=== PATIENT | male | born 1980 | race Caucasian/White ===

== ENCOUNTER 2019-09-02 16:39 | Inpatient (IN) | payer MEDICAID, OTHER ==
[~2019-09-02] VITALS: Ht 170.2 cm; Wt 69.3 kg
[2019-09-02] MEDS ORDERED: SODIUM CHLORIDE 0.9% 500 ML IVB ONE (17:03)
[2019-09-02 17:26] LABS: Basophils # (auto) 0.1 10 ^3/uL (0-0.2); Basophils % (auto) 0.8 % (0.0-2.0); Eosinophils # (auto) 0.2 10 ^3/uL (0-0.8); Eosinophils % (auto) 1.4 % (0.0-7.0); Hematocrit 51.6 % (41.0-53.0); Hemoglobin 17.6 g/dL (13.5-17.5); Lymphocytes # (auto) 2.4 10 ^3/uL (0.4-5.4); Mean Corpuscular Hemoglobin 33.7 pg (28.0-32.0); Mean Corpuscular Hgb Conc. 34.1 g/dL (32.0-36.0); Mean Corpuscular Volume 98.7 fL (80.0-100.0); Monocytes # (auto) 1.3 10 ^3/uL (0-1.3); Monocytes % (auto) 11.9 % (0.0-12.0); Neutrophils # (auto) 6.9 10 ^3/uL (1.6-8.6); Neutrophils % (auto) 63.9 % (37.0-80.0); Nucleated Red Blood Cells % 0.1 %; Platelet Count (auto) 198 10^3/uL (140-450); Red Blood Cells 5.22 10^6/uL (4.5-5.90); White Blood Cell 10.8 10^3/uL (4.4-10.8)
[2019-09-02] MEDS ORDERED: cloNIDine HCL 0.1 MG TAB PO ONE ×2 (17:30→18:00)
[2019-09-02 17:44] LABS: Alanine Aminotransferase 32 U/L (16-61); Albumin 4.2 g/dL (3.4-5.0); Anion Gap 6 (5-15); Aspartate Aminotransferase 35 U/L (15-37); Blood Urea Nitrogen 12 mg/dL (7-18); Calcium 9.4 mg/dL (8.5-10.1); Carbon Dioxide 26 mmol/L (21-32); Chloride 102 mmol/L (98-107); GFR African American 96 mL/min; GFR Non-African American 80 mL/min; Glucose 81 mg/dL (74-106); Magnesium 2.4 mg/dL (1.6-2.6); Potassium 4.4 mmol/L (3.5-5.1); Sodium 134 mmol/L (136-145)
[2019-09-02 17:49] LABS: Alkaline Phosphatase 63 U/L (45-117); Bilirubin, Total 0.5 mg/dL (0.2-1.0); Total Protein 8.2 g/dL (6.4-8.2)
[2019-09-02] MEDS ORDERED: DEXTROSE (50%) 50ML SYRG IV PRN (18:15)
[2019-09-02] MEDS ORDERED: MORPHINE SULF INJ 2 MG/ML SYRINGE 1ML IV PRN (18:15)
[2019-09-02] MEDS ORDERED: NITROGLYCERIN 0.4 MG SL TAB SL PRN (18:15)
--- NOTE | 2019-09-02 19:37 | NUR ---
Telemetry admit from [facility] admitted to Telemetry unit after SBAR received. Patient oriented to Charo Jenkins, primary RN, unit, room, bed, and unit policies regarding patient care and visiting hours. Patient now on continuous telemetry monitoring, tele box # [id number] and telemetry reading on arrival to unit is Sinus tach. Patient on room air, weighed by bedscale and encouraged to call if they need something. All questions and concerns addressed, patient verbalized understanding.
[2019-09-02 22:00] VITALS: BP 125/89
[2019-09-02] MEDS: InsuLIN REG 1unit/0.01ml Soln (100units/ml) SC SCH (22:00)
[2019-09-02] MEDS: ACCU-CHEK COMFORT CURVE STRIP VI SCH (22:05)
[2019-09-02] MEDS: HYDROcodone-ACET 5/325MG TAB PO PRN (22:42)
[2019-09-03] MEDS ORDERED: SODIUM CHLORIDE 0.9% 1,000 ML IV SCH (02:00)
--- NOTE | 2019-09-03 02:55 | NUR ---
IV insertion IV access obtained, via clean sterile technique by inserting 20 gauge catheter at right forearm after 1 attempt. IV secured properly. No trauma to site. Patient tolerated well. Addendum: 09/03/19 at 0256 by Charo Jenkins RN IV removal IV at left AC DC'd with clean sterile technique, catheter fully intact. Pressure dressing applied to site. Patient tolerated well.
[2019-09-03 05:28] LABS: Basophils # (auto) 0.1 10 ^3/uL (0-0.2); Hemoglobin 15.5 g/dL (13.5-17.5); Monocytes # (auto) 0.9 10 ^3/uL (0-1.3)
[2019-09-03 05:29] LABS: Basophils % (auto) 1.3 % (0.0-2.0); Eosinophils # (auto) 0.3 10 ^3/uL (0-0.8); Eosinophils % (auto) 4.8 % (0.0-7.0); Hematocrit 44.9 % (41.0-53.0); Lymphocytes # (auto) 2.4 10 ^3/uL (0.4-5.4); Lymphocytes % (auto) 33.2 % (10.0-50.0); Mean Corpuscular Hemoglobin 34.2 pg (28.0-32.0); Mean Corpuscular Hgb Conc. 34.4 g/dL (32.0-36.0); Mean Corpuscular Volume 99.3 fL (80.0-100.0); Neutrophils # (auto) 3.4 10 ^3/uL (1.6-8.6); Neutrophils % (auto) 47.7 % (37.0-80.0); Nucleated Red Blood Cells % 0.2 %; Platelet Count (auto) 173 10^3/uL (140-450); Red Blood Cells 4.52 10^6/uL (4.5-5.90); White Blood Cell 7.1 10^3/uL (4.4-10.8)
[2019-09-03 05:30] VITALS: BP 127/81
[2019-09-03 05:47] LABS: Albumin 3.2 g/dL (3.4-5.0); BUN/Creatinine Ratio 16.3; Calcium 8.5 mg/dL (8.5-10.1); Magnesium 2.4 mg/dL (1.6-2.6); Potassium 4.1 mmol/L (3.5-5.1)
[2019-09-03 05:48] LABS: Partial Thromboplastin Time 28.5 sec (23.64-32.05)
[2019-09-03 05:51] LABS: Bilirubin, Total 0.4 mg/dL (0.2-1.0); Phosphorus 4.3 mg/dL (2.5-4.90); Total Protein 6.6 g/dL (6.4-8.2)
[2019-09-03] MEDS ORDERED: CYCL5TAB PO (05:59)
[2019-09-03] MEDS: ACCU-CHEK COMFORT CURVE STRIP VI SCH ×2 (06:25→11:30)
[2019-09-03] MEDS: InsuLIN REG 1unit/0.01ml Soln (100units/ml) SC SCH ×2 (06:25→11:30)
--- NOTE | 2019-09-03 09:00 | NUR ---
AWAKE ALERT ORIENTED TIMES 4 DENIES ANY PAIN AT THIS TIME STATES HE FEEL EXHAUSTED LIKE HE HAS BEEN RAN OVER BY A TRUCK. HE SAID THE BODY CRAMPING HAS RESOLVED WHICH IS ONE OF THE SYMPTOMS THAT BROUGHT HIM TO THE HOSPITAL YESTERDAY. I INFORMED HIM WE ARE AWAITING CONSULT BY NEUROLOGIST DR NARAYAN. HE VERBALIZED UNDERSTANDING. NO SIGNS OF DISTRESS.
--- NOTE | 2019-09-03 09:23 | NUR ---
LEFT A MESSAGE ON JONAS'S PHONE TO SEE IF HE CANT HELP THE PATIENT WITH MEDI-VAHID. PATIENT DOES NOT HAVE INSURANCE.
[2019-09-03 09:45] VITALS: BP 132/79
[2019-09-03] MEDS ORDERED: ASPirin 81 mg TAB PO SCH (10:00)
[2019-09-03] MEDS ORDERED: ENOXAPARIN SOD 40 MG/0.4 ML SYRINGE SC SCH (10:00)
--- NOTE | 2019-09-03 12:11 | NUR ---
NURSING REPORTS NO DIFFICULTY WITH SWALLOW. NO EVALUATION AT THIS TIME.
[2019-09-03 12:23] LABS: Urine Bacteria NONE SEEN /hpf (None Seen); Urine Blood Negative /uL (Negative); Urine WBC <1 /hpf (0 - 3)
[2019-09-03 12:32] LABS: Amphetamine Screen, Urine NEGATIVE (NEGATIVE); Barbiturate Scree,Urine NEGATIVE (NEGATIVE); Benzodiazephine Screen, Urine NEGATIVE (NEGATIVE); Cocaine Screen, Urine NEGATIVE (NEGATIVE); Opiate Scree,Urine NEGATIVE (NEGATIVE); Phencyclidine Screen, Urine NEGATIVE (NEGATIVE)
[2019-09-03 12:40] LABS: Cannabinoid Screen, Urine POSITIVE (NEGATIVE)
[2019-09-03] MEDS: HYDROcodone-ACET 5/325MG TAB PO PRN (12:49)
[2019-09-03 13:18] VITALS: BP 131/86
--- NOTE | 2019-09-03 15:07 | NUR ---
Nutrition Assessment Notes Please refer to link for full assessment notes. Est Energy needs: [id number] kcals (25-30 kcal/kgBW) Est Protein needs: 55-69 gms/day (0.8-1.0 gm/kgBW) Will continue to monitor and reassess prn. Addendum: 09/03/19 at [address] Amended: Links added.
--- NOTE | 2019-09-03 15:12 | NUR ---
REQUESTING TO LEAVE AMA. HE SAID HE DOES NOT HAVE INSURANCE AND DOES NOT WANT TO WAIT FOR NEUROLOGY. IV REMOVED AMA SIGNED TAKEN TO LOBBY NO SIGNS OF DISTRESS.
[2019-09-03] MEDS ORDERED: ATORVASTATIN 20 MG TAB PO SCH (22:00)
== END 2019-09-03 15:15 | disposition left against medical advice (07) | DRG 69 ==
LOC: ER 16:39 → TELE 16:40 → TELE-CENTR 19:33
PROVIDERS: ADMIT Hospitalist; ATTEND Family Medicine
DX: G45.9 Transient cerebral ischemic attack, unspecified (principal); D75.1 Secondary polycythemia; R53.1 Weakness; M54.5 Low back pain; E78.5 Hyperlipidemia, unspecified; F12.10 Cannabis abuse, uncomplicated; F17.210 Nicotine dependence, cigarettes, uncomplicated; Z53.29 Procedure and treatment not carried out because of patient's decision for other reasons
CPT/HCPCS: 36415; 70450; 71046; 80053; 80061; 80307; 81001; 82962; 83010; 83735; 84100; 84484; 85025; 85610; 85730; 93005; G0378